=== PATIENT | female | born 1990 | race Caucasian/White ===

== ENCOUNTER → 2021-02-13 | Outpatient (REF) | LOC: M LABSMTC 12:04 | PROVIDERS: ATTEND Pediatrics | DX: Z20.822 Contact with and (suspected) exposure to COVID-19 (principal) ==

== ENCOUNTER → 2023-10-25 | Outpatient (REF) | LOC: M EMP 09:18 | PROVIDERS: ATTEND Family Medicine | DX: Z01.89 Encounter for other specified special examinations (principal) ==